=== PATIENT | male | born 1975 | race Caucasian/White ===

== ENCOUNTER 2018-06-16 05:44 | Inpatient (IN) | payer BC, OTHER ==
[2018-06-11 09:18] LABS: URINE BILIRUBIN NEGATIVE (Negative); URINE BLOOD NEGATIVE (Negative); URINE CLARITY CLEAR; URINE COLOR YELLOW; URINE GLUCOSE-RANDOM* NEGATIVE (Negative); URINE KETONES NEGATIVE (Negative); URINE LEUKOCYTES-REFLEX NEGATIVE (Negative); URINE NITRITE-REFLEX NEGATIVE (Negative); URINE PROTEIN (DIPSTICK) NEGATIVE (Negative); URINE UROBILINOGEN 0.2 E.U./dl (0.2-1.0)
[2018-06-11 09:19] LABS: HEMATOCRIT 45.5 % (42.0-52.0); HEMOGLOBIN 15.8 gm/dL (14.0-18.0); MCHC 34.8 g/dL (28.0-37.0); MCV 89.1 fL (80.0-100.0); RBC 5.11 mil/uL (4.50-6.00); RDW 15.4 % (10.5-14.5); WBC 10.1 thou/uL (4.0-11.0)
[2018-06-11 09:28] LABS: CALCIUM 9.6 mg/dL (8.5-10.1); CREATININE 1.2 mg/dL (0.7-1.3); POTASSIUM 3.5 mmol/L (3.5-5.1)
[2018-06-11 09:30] LABS: PROTIME 10.7 Seconds (9.3-11.4)
[~2018-06-16] VITALS: Ht 167.6 cm; Wt 111.1 kg
--- NOTE | ~2018-06-16 | O ---
[facility] [place] [address] OPERATIVE REPORT Name: PIERO LYON Room #: 463-P [facility] M.R.#: [id number] Admission: 06/18/18 Attend Phys: Scott Alcantar MD Discharge: 06/19/18 Date of : 79 Report #: [id number] THIS REPORT FOR: //name// CC: LINDSAY ORDONEZ Physician staff Scott Alcantar DATE OF SERVICE: 06/18/2018 PREOPERATIVE DIAGNOSIS: Left knee medial compartment osteoarthritis. POSTOPERATIVE DIAGNOSIS: Left knee medial compartment osteoarthritis. PROCEDURE: Left unicompartmental medial knee arthroplasty using Navio assist. SURGEON: Scott Alcantar MD. ICE CARVER: Courtney Woodward PA-C INDICATION FOR ICE CARVER: Throughout the case, extensive retraction and manipulation of the knee was required. This was afforded to me by my assistant child care teacher. ANESTHESIA: LMA with an adductor canal block. IMPLANTS: [employer] size 4 Journey femoral component, size 3 tibial component, size 8 polyethylene. TOURNIQUET TIME: 86 minutes. ESTIMATED BLOOD LOSS: 25 mL. COMPLICATIONS: None. SPECIMENS: None. CONDITION UPON LEAVING THE OPERATING ROOM: Stable. INDICATIONS FOR PROCEDURE: The patient is a 43-year-old gentleman with severe left knee medial compartment osteoarthritis. He had failed conservative measures for this and after discussion with him, he elected for left unicompartmental knee arthroplasty. DESCRIPTION OF PROCEDURE: Risks, benefits, alternatives, complications were discussed in detail with the patient including but not limited to risk of anesthesia, risk of damage to nerves, arteries, blood vessels, risk for infection and bleeding, risk for continued knee pain and need for reoperation. [facility] [address] [place] [address] OPERATIVE REPORT Name: PIERO LYON Room #: 463-P [facility].#: [id number] Admission: 06/18/18 Attend Phys: Scott Alcantar MD Discharge: 06/19/18 Date of : 79 Report #: [id number] Informed consent was obtained from the patient. Left knee was appropriately marked in the preoperative holding area. IV Ancef was given for preoperative antibiotics. Adductor canal block was placed by Anesthesia. He was brought to the operating room and placed in supine position on operating room table. LMA anesthesia was induced without complication. Tourniquet was placed on the left thigh. Left lower extremity was prepped and draped in normal sterile fashion. Timeout was performed properly identifying the patient and procedure as well as the instrumentation and implants. All in the operating room were in agreement. Left lower extremity was exsanguinated, tourniquet was inflated. Tourniquet time was 86 minutes. Standard midline incision was made with 10 blade through the skin, and deep flaps were developed medially and laterally. Fresh 10 blade was used to make a medial parapatellar arthrotomy, and the knee was inspected. There was severe medial compartment osteoarthritis with well-maintained lateral and patellofemoral compartment and the previously reconstructed anterior cruciate ligament was intact. It was decided to proceed with medial compartment arthroplasty. Reference pins were placed in the femur and the tibia and the knee was then mapped using the Navio robotic navigation system. Intraoperative plan was made. The femur was sized as a size 4, the tibia as a size 3 and after acceptance of the intraoperative plan, the Navio bur was used to resect the femoral bone and the tibial bone. The tibia was trialed with a size 3 tibial trial, femur with a size 4 and a size 8 polyethylene. Knee was taken through range of motion, found to be stable, found to have a 1 mm gap throughout. Full range of motion of the knee, both digitally and manually. Trial components were removed. Bony ends were thoroughly irrigated with normal saline. A final size 3 tibia and a size 4 Journey Oxinium femoral component were placed. While the cement cured, a periarticular injection consisting of morphine, ropivacaine, epinephrine, Toradol was placed around the knee joint. After the cement cured, final size 8 polyethylene was placed. A gram of vancomycin was placed deep in the joint. Fascia was closed with 0 Vicryl. Tourniquet was deflated. Hemostasis was obtained with Bovie cautery. Skin was closed with 2-0 Vicryl, 3-0 Monocryl. Dermabond and a DANNY dressing was applied. The patient tolerated this procedure well and went to recovery room under care of Anesthesia postoperatively. <ELECTRONICALLY SIGNED> By: Scott Alacntar MD 06/20/18 [id number] Scott Alcantar MD /nt
[~2018-06-16 05:44] MED LIST: CELEXA40 MG PO; WELLBUTRIN XL150 MG PO; XANAX1 MG PO
[2018-06-18] VITALS (8 sets, daily range): BP systolic 127–149; BP diastolic 75–90
[2018-06-19 00:17] VITALS: BP 118/72
[2018-06-19 04:44] LABS: HEMOGLOBIN 15.1 gm/dL (14.0-18.0); MCH 30.3 pg (26.0-34.0); MCHC 33.6 g/dL (28.0-37.0); MCV 90.1 fL (80.0-100.0); RBC 4.99 mil/uL (4.50-6.00); RDW 14.6 % (10.5-14.5); WBC 12.6 thou/uL (4.0-11.0)
[2018-06-19 05:03] VITALS: BP 117/73
[2018-06-19 07:28] VITALS: BP 128/81
[2018-06-19] MEDS ORDERED: PERCOCET PO (12:26)
[2018-06-19] MEDS ORDERED: TRI-BUFFERED A325 M1 PO (12:26)
[2018-06-19] MEDS ORDERED: NEURONTIN 300300 M1 PO (12:27)
[2018-06-19 14:42] VITALS: BP 128/81
== END 2018-06-19 16:09 | disposition home or self-care (01) | DRG 470 ==
LOC: PRE 05:44 → TBA 05:49 → PRE 05:49 → OR 09:27 → EDSTATUS 09:28 → PRE 09:28 → TBA 06-18 05:30 → PRE 06-18 08:59 → 4W 06-18 17:02 → ENTRNSPT 06-19 15:06 → EDTRNSPTSTS 06-19 15:11 → 4W 06-19 16:09
PROVIDERS: Orthopaedic Surgery
PROC: 0SRD0L9 Replacement of Left Knee Joint with Medial Unicondylar Synthetic Substitute, Cemented, Open Approach (ICD-10-PCS; principal; 2018-06-18)
DX: M17.12 Unilateral primary osteoarthritis, left knee (principal); G89.29 Other chronic pain; F32.9 Major depressive disorder, single episode, unspecified; F41.9 Anxiety disorder, unspecified; Z88.6 Allergy status to analgesic agent; Z28.21 Immunization not carried out because of patient refusal
CPT/HCPCS: 10047; 50010; 50101; 50415; 50954; 51130; 51225; 51771; 53078; 53370; 54118; 56527; 56528; 57095; 57103; 57109; 57110; 57112; 57113; 62110; 62900; 70005